=== PATIENT | female | born 1985 | race Caucasian/White ===

== ENCOUNTER 2023-04-07 21:40 | Outpatient (REF) | payer BC, SELFPAY ==
[2023-04-14 11:09] LABS: Age Gdln ACOG Testing Note (.); HPV Aptima Negative (Negative); IGP, Aptima HPV, rfx 16/18,45 Note (.)
== END 2023-04-07 21:41 | disposition home or self-care (01) ==
LOC: LAB 21:40
PROVIDERS: Visit Provider Physician Assistant
DX: Z01.419 Encounter for gynecological examination (general) (routine) without abnormal findings (principal)
CPT/HCPCS: 87624; G0145

== ENCOUNTER 2024-10-02 12:31 | Outpatient (REF) | payer BC, SELFPAY ==
--- OUTSIDE RECORDS SUMMARY | 2024-10-02 10:00 | XMS_ITS | Encounter Summary ---
Author Organization [facility] Address [address] [facility] [place] [address] Care Team Providers Care Nurse Assistant Name Role Phone Shira Cannon MD Primary Care Provider Reason for Visit * Reason Comments Well Women Visit Encounter Details Date Type Department Care Team (Late st Contact Info) Description 10/02/2024 10:00 AM EDT Office Visit [facility] [address] [place] [id number] Laurita Vaughan PA [address] [facility] [address] [place], [place] [id number] Well woman exam with routine gynecological exam; Breast cancer screening by mammogram; Keloid Social History Tobacco Use Types Packs/Day Years Used Date Smoking Tobacco: Never Smokeless Tobacco: Never Alcohol Use Standard Drinks/Week Comments Never 0 (1 standard drink = 0.6 oz pur e alcohol) Comments No Sex and Gender Information Value Date Recorded Sex Assigned at Female 04/05/2023 5:39 PM EST Legal Sex Female 7:25 PM EDT Gender Identity Female 04/05/2023 5:39 PM EST Sexual Orientation Straight 04/05/2023 5: 39 PM EST documented as of this encounter Last Filed Vital Signs Vital Sign Reading Time Taken Comments Blood Pressure 120/76 10/02/2024 9:55 AM EDT Pulse - - Temperature - - Respiratory Rate - - Oxygen Saturation - - Inhaled Oxygen Concentration - - Weight 87.3 kg (192 lb 6.4 oz) 10/02/2024 9:55 A M EDT Height - - Body Mass Index 33.87 08/06/2022 12:00 PM EDT documented in this encounter Plan of Treatment Scheduled Orders Name Type Priority Associated Diagnoses Orde r Schedule Bilateral screening mammogram Imaging Routine Breast cancer screening by mammogram Expected: 10/02/2024 (Approximate), Expires: 12/03/2025 THIN PREP TIS PAP AND HR HPV DNA Pathology and Cytology Routine Well woman exam with routine gynecological exam Ordered: 10/02/2024 documented as of this encounter Visit Diagnoses Diagnosis Well woman exam with routine gynecological exam Routine gynecological examination Breast cancer screening by mammogram Keloid Keloid scar documented in this encounter Care Teams Nurse Assistant Relationship Specialty Start Date End Date Shira Cannon MD [address] [place] [address] PCP - General Family Medicine 07/28/22 documented as of this encounter
--- OUTSIDE RECORDS SUMMARY | 2024-10-02 12:34 | XMS_ITS | Encounter Summary ---
Author Organization [facility] Address [address] [facility] [place] [address] Care Team Providers Care Compensation Supervisor Name Role Phone Shira Cannon MD Primary Care Provider Encounter Details Date Type Department Care Team (Late st Contact Info) Description 10/02/2024 Bamboo flowsheet [facility] [address] [place] [address] Laurita Vaughan PA [address] [facility] [address] [place], [place] [id number] Social History Tobacco Use Types Packs/Day Years [...] PM EST documented as of this encounter Plan of Treatment Not on file documented as of this encounter Visit Diagnoses Not on filedocumented in this encounter Care Teams Compensation Supervisor Relationship Specialty Start Date End Date Shira Cannon MD [address] [facility] [address] [place] [address] PCP - General Family Medicine 07/28/22 documented as of this encounter
--- OUTSIDE RECORDS SUMMARY | 2024-10-02 12:34 | XMS_ITS | Clinical Summary ---
Author Organization [facility] Address [address] [place] [address] Care Team Providers Care Frame And Scrap Crusher Name Role Phone Winifred Talbert Primary Care Provider [phone] Social History Tobacco Use Types Packs/Day Years Used Date Smoking Tobacco: Never Assessed Comments Unknown Sex and Gender Information Value Date Recorded Sex Assigned at Not on file Legal Sex Female 9:37 PM EDT Gender Identity Not on file Sexual Orientation Not on file Plan of Treatment Health Maintenance Due Date Last Done Comments Tetanus: Every 10yrs 1985 Wellness Visit 07/06/1987 Depression Screening/Follow-Up (PHQ-2/9) 1996 Hepatitis C Screening 2002 HPV/Cotest 11/21/2015 11/20/2010 Cervical Cancer Screening 08/17/2016 Pap Smear 08/17/2016 08/17/2013, 11/20/2010 COVID-19 Vaccine (2023-2 5 season) 2023 Influenza Vaccine (#1) 2024 HIV Screening Completed 08/17/2013, 11/20/2010 Pneumococcal Vaccine: Ped or At-Risk Aged Out No longer eligible b ased on patient's age to complete this topic Procedures Procedure Name Priority Date/Time Associated Diagnosis Comments THINPREP PAP SMEAR Routine 08/17/2013 9: 33 PM EDT HIV 1/2 SCREEN (4TH GENERATION) Routine 08/17/2013 11:40 AM EDT HLAB - HPV DNA PROBE Routine 11/20/2010 2:17 PM EDT from Last 3 Months or Most Recently Relevant to Health Maintenance Results * Liquid-Based Pap Smear, Screening (08/17/2013 9:33 PM EDT) Biopsy specimen (specimen) 08/17/2013 9:33 PM EDT Narrative [facility] - 08/17/2013 9:33 PM EDT . REPORT Name: JESS BERGER [id number] Attending: OLIVIA GONZALEZ Date of Service: 08/17/2013 Date Received: 08/17/2013 CYTOPATHOLOGY REPORT Specimen: Cervical - ThinPrep Pap with Imaging - HPV test if ASCUS result Specimen Adequacy: Satisfactory for evaluation; endocervical/transformation zone component present. General Categorization: Negative for Intraepithelial Lesion and Malignancy Educational Note: The Pap smear is a screening test for the detection of cervical cancer and its precursor lesions. False positive and false negative results can occur. The test should be performed at regular intervals, and positive results should be confirmed before definitive therapy. Additional testing methods may be helpful in detecting abnormalities or in clinical management. Interpretation performed by Nasrin PECK(ASCP). Electronically signed 08/22/13 02:37:54 PM Testing performed at [facility], [address] [place] [address], [facility], CLIA ID: [id number] us Olivia Gonzalez DO PATHOLOGY/CYTOLOGY ORDER KEYANNA Final Result Performing Organization Address [facility] Co de Phone Number [facility] * HIV Antibody (HIV1/HIV2) (08/17/2013 11:40 AM EDT) HIV 1-2 Screen Negative Negative [facility] Comment: Test performed using [employer] Immunodiagnostic system. The above 1 [place] [address] Blood specimen (specimen) 08/17/2013 11:40 AM EDT us Olivia Gonzalez DO LAB BLOOD ORDERABLES Fin al Result Performing Organization Address [facility] Co de Phone Number [facility] * HPV DNA Probe (11/20/2010 2:17 PM EDT) HPV High Risk Negative Negative [facility] Comment: Assayed for high risk HPV types 16,18,31,33,35,39,45,51,52,56,58,59,68 using Digene Hybrid Capture 2 High-Risk HPV DNA Test The above 1 analytes were performed by [address],[place] [address] Specimen from genital system (specimen) 11/20/2010 2:17 PM EDT Olivia Gonzalez DO BODY FLUIDS AND STOOLS O RDERABLES Final Result [facility] from Last 3 Months or Most Recently Relevant to Health Maintenance Care Teams Frame And Scrap Crusher Relationship Specialty Start Date End Date Winifred Talbert DO [address] [place] [address] PCP - General 04/11/13
--- OUTSIDE RECORDS SUMMARY | 2024-10-02 12:34 | XMS_ITS | Encounter Summary ---
Author Organization [facility] Address [address] [facility] [place] [address] Care Team Providers Care Rn Peritoneal Dialysis Name Role Phone Shira Cannon MD Primary Care Provider [phone] Encounter Details Date Type Department Care Team (Latest Contact Info) Description 09/26/2024 Travel Social History Tobacco Use Types Packs/Day Years [...] on filedocumented in this encounter Care Teams Rn Peritoneal Dialysis Relationship Specialty Start Date End Date Shira Cannon MD [address] [facility] [address] [place] [address] PCP - General Family Medicine 07/28/22 documented as of this encounter
--- OUTSIDE RECORDS SUMMARY | 2024-10-02 12:34 | XMS_ITS | Clinical Summary ---
Author Organization [facility] Address [address] [place] [address] Care Team Providers Care Bag Valver Name Role Phone Shira Cannon MD Primary Care Provider [phone] Allergies Active Allergy Reactions Criticality Noted Date Comments Amoxicillin-Pot Clavulanate Diarrhea 04/05/19 24 Medications multivitamin with minerals (Centrum) 9-200 mg-mcg tablet split tablet Take 1 half tablet by mouth Daily Active clobetasol (Temovate) 0.05 % creamIndication s:Keloid Apply 1 application topically in the morning and 1 application before bedtime. 60 g 11/02/19 25 Active Encounters Date Type Department Care Team Description 10/02/2024 10:00 AM EDT Office Visit [facility] OB [address] [facility] [place] [address] Laurita Vaughan PA Well woman exam with routine gynecological exam; Breast cancer screening by mammogram; Keloid 10/02/2024 Bamboo flowsheet [facility] OB [address] [facility] [place] [address] Laurita Vaughan PA 09/26/2024 Travel 07/04/2024 Travel from Last 3 Months Immunizations Immunization Administration Dates Next Due Influenza, seasonal, injectable 01/29/2023 Family History Medical History Relation Name Comments Elevated cholesterol Father Skin cancer Father Cardiomyopathy Mother Diabetes Mother Thyroid cancer Mother Relation Name Status Comments Father Alive Mother Alive Social History Tobacco Use Types Packs/Day Years Used Date Smoking Tobacco: Never Smokeless Tobacco: Never Tobacco Cessation:Counseling Given: Not Answered Alcohol Use Standard Drinks/Week Comments Never 0 (1 standard drink = 0.6 oz pur e alcohol) Comments No Sex and Gender Information Value Date Recorded Sex Assigned at Female 04/05/2023 5:39 PM EST Legal Sex Female 7:25 PM EDT Gender Identity Female 04/05/2023 5:39 PM EST Sexual Orientation Straight 04/05/2023 5: 39 PM EST Last Filed Vital Signs Vital Sign Reading Time Taken Comments Blood Pressure 120/76 10/02/2024 9:55 AM EDT Pulse - - Temperature - - Respiratory Rate - - Oxygen Saturation - - Inhaled Oxygen Concentration - - Weight 87.3 kg (192 lb 6.4 oz) 10/02/2024 9:55 A M EDT Height 160.5 cm (5' 3.2 ) 08/06/2022 12:00 PM ED T Body Mass Index 33.87 08/06/2022 12:00 PM EDT Plan of Treatment Health Maintenance Due Date Last Done Comments Mammogram 2024 Influenza Vaccine (#1) 2024 , 01/06/2022, 01/02/2021, Additional history exists Cervical Cancer Screening Discontinued HPV/Cotest Discontinued 04/07/2023, 11/20/2010 Pap Smear Discontinued 04/07/2023, 08/17/2013 Procedures Procedure Name Priority Date/Time Associated Diagnosis Comments HPV DNA PROBE, AMPLIFIED Routine 04/07/2023 11:20 AM EST Well woman exam with routine gynecological exam PAP SMEAR Routine 04/07/2023 11:20 AM EST Well woman exam with routine gynecological exam from Last 3 Months or Most Recently Relevant to Health Maintenance Results * HPV DNA probe, amplified (04/07/2023 11:20 AM EST) Swab Cervical swab / Unknown 04/07/2023 11:20 AM EST us Laurita [facility] MICROBIOLOGY - GENERAL ORDER KEYANNA Final Result [facility] * Pap Smear (04/07/2023 11:20 AM EST) Swab Cervical swab / Unknown 04/07/2023 11:20 AM EST Laurita [facility] CYTOLOGY ORDERABLES Final Re sult EXTERNAL LAB from Last 3 Months or Most Recently Relevant to Health Maintenance Insurance [facility] Care Teams Bag Valver Relationship Specialty Start Date End Date Shira Cannon MD [address] [facility] [address] [place] [address] PCP - General Family Medicine 07/28/22
--- OUTSIDE RECORDS SUMMARY | 2024-10-02 12:34 | XMS_ITS | Clinical Summary ---
Author Organization [facility] Address [id number] [address] [place] [address] Care Team Providers Care Supervisor Sterile Processing Name Role Phone Shira Cannon MD Primary Care Provider [phone] Allergies No known active allergies Medications No known medications Active Problems No known active problems Immunizations Immunization Administration Dates Next Due COVID-19, mRNA, LNP-S, PF, 100mcg/0.5mL Dose ,06/20/2020 Family History Relation Name Status Comments Brother x 2 Alive Daughter x 2 Father Alive Mother Alive Sister Alive Social History Tobacco Use Types Packs/Day Years Used Date Smoking Tobacco: Never Smokeless Tobacco: Never Alcohol Use Standard Drinks/Week Comments Yes 0 (1 standard drink = 0.6 oz pur e alcohol) once every 3-4 months Childcare Answer Date Recorded Childcare Unknown 06/19/2020 Employment Answer Date Recorded Employment Unknown 06/19/2020 Purpose - Life Answer Date Recorded Purpose and direction in life Unknown Comments Unknown Sex and Gender Information Value Date Recorded Sex Assigned at Not on file Legal Sex Female 10:59 AM EDT Gender Identity Not on file Sexual Orientation Not on file Last Filed Vital Signs Vital Sign Reading Time Taken Comments Blood Pressure 120/80 07/18/2021 9:56 AM EDT Pulse - - Temperature 36.4 C (97.5 F) 07/18/2021 9:56 AM EDT Respiratory Rate - - Oxygen Saturation - - Inhaled Oxygen Concentration - - Weight 81.8 kg (180 lb 6.4 oz) 07/18/2021 9:56 A M EDT Height 160 cm (5' 3 ) 07/18/2021 9:56 AM EDT Body Mass Index 31.96 07/18/2021 9:56 AM EDT Plan of Treatment Health Maintenance Due Date Last Done Comments Depression Screening 1996 Tobacco Screening 1996 Adult BMI Screening 2002 DTaP,Tdap and Td Vaccines (1 - Tdap) 07/06/2003 Pap Smear 2005 COVID-19 Vaccine (4 - 2023-2 5 season) 2023 02/03/2021, 07/18/2020, 06/20/2020 Influenza Vaccine 11/20/2024 01/02/2021, , 03/16/2019 Medical Devices Not on file Insurance [facility] Care Teams Supervisor Sterile Processing Relationship Specialty Start Date End Date [place] [address] [place] [address] PCP - General Family Medicine 07/02/21
--- OUTSIDE RECORDS SUMMARY | 2024-10-02 12:34 | XMS_ITS | Encounter Summary ---
Author Organization [facility] Address [address] [facility] [place] [address] Care Team Providers Care Interactive Marketing Strategist Name Role Phone Ana Bernal Unavailable [phone] Shira Cannon MD Primary Care Provider [phone] Encounter Details Date Type Department Care Team (Late st Contact Info) Description 02/03/2023 Abstract [facility] [address] [facility] [address] [place] [address] Shira Cannon MD [address] [facility] [address] [place] [address] Social History Tobacco Use Types Packs/Day Years [...] on filedocumented in this encounter Care Teams Interactive Marketing Strategist Relationship Specialty Start Date End Date Ana Bernal PA [address] [facility] [address] [place] [address] PCP - Medical [place] [employer] 08/20/22 05/29/23 Shira Cannon MD [address] [address] PCP - General Family Medicine 07/28/22 documented as of this encounter
[2024-10-04 17:14] LABS: Age Gdln ACOG Testing Note (.); IGP, Aptima HPV, rfx 16/18,45 Note (.)
== END 2024-10-02 12:32 | disposition home or self-care (01) ==
LOC: LAB 12:31
PROVIDERS: Visit Provider Obstetrics & Gynecology
DX: Z01.419 Encounter for gynecological examination (general) (routine) without abnormal findings (principal)
CPT/HCPCS: 88175

== ENCOUNTER 2024-10-25 11:11 | Outpatient (OUT) | payer BC, SELFPAY ==
--- NOTE | 2024-10-25 11:14 | MM_ITS ---
Patient Name: JESS BERGER MR#: [id number] : 1985 Exam Date: 10/25/2024 Ordering Doctor: DR EDWIN PYLE . RADIOLOGY REPORT PROCEDURE: MM TOMOSYNTHESIS SCREENING BI COMPARISON: None. INDICATIONS: Screening Calculator Name NCI Breast Cancer Risk Assessment Tool 5 Year Breast Cancer Risk 0.70% Lifetime Breast Cancer Risk 12.10% Personal Breast Cancer No Personal Ovarian Cancer No Treatments None Family Cancers Aunt-paternal with breast cancer at age ~55; Mother with thyroid cancer at age 64; Brother with renal cell carcinoma cancer at age 40; Uncle-maternal with colon cancer at age 75; Grandfather-maternal with pancreatic cancer at age 80. LOCATION: [facility] BREAST COMPOSITION: There are scattered areas of fibroglandular density. FINDINGS: DIAGNOSTIC CATEGORY 0--INCOMPLETE: NEED ADDITIONAL IMAGING EVALUATION. RIGHT BREAST: Focal asymmetry upper outer quadrant right breast, middle depth. LEFT BREAST: No significant suspicious finding. RECOMMENDATIONS: ADDITIONAL MAMMOGRAPHIC VIEWS REQUIRED: RIGHT BREAST - spot-compression/true lateral views , possible ultrasound are recommended. PLEASE NOTE: A NORMAL MAMMOGRAM DOES NOT EXCLUDE THE POSSIBILITY OF BREAST CANCER. A CLINICALLY SUSPICIOUS PALPABLE LUMP SHOULD BE BIOPSIED. Dictated by: Cedric Desai DO on 10/25/2024 at 15:46 Approved by: Cedric Desai DO on 10/25/2024 at 15:48
== END 2024-10-25 11:12 | disposition home or self-care (01) ==
LOC: MAMMO 11:11
PROVIDERS: Visit Provider Obstetrics & Gynecology
DX: Z12.31 Encounter for screening mammogram for malignant neoplasm of breast (principal); Z80.3 Family history of malignant neoplasm of breast; Z80.8 Family history of malignant neoplasm of other organs or systems; Z80.51 Family history of malignant neoplasm of kidney; Z80.0 Family history of malignant neoplasm of digestive organs; Z80.9 Family history of malignant neoplasm, unspecified; Z80.59 Family history of malignant neoplasm of other urinary tract organ; R92.8 Other abnormal and inconclusive findings on diagnostic imaging of breast
CPT/HCPCS: 77063; 77067